=== PATIENT | male | born 1975 | race Two or more races ===

== ENCOUNTER 2020-02-20 11:08 | Observation (INO) | payer MEDICARE, MEDICAID ==
[~2020-02-20] VITALS: Ht 172.7 cm; Wt 57.6 kg
--- NOTE | 2020-02-20 11:08 | NUR ---
TRANSFER FROM [facility] C/O C1-2 DISLOCATION AFTER GLF IN SHOWER, C-COLLAR IN PLACE ON ARRIVAL, PT HEAD IMMOBILIZED WITH BLANKETS/TOWELS TO GURNEY D/T TURNING & LIFTING HEAD FREQUENTLY DESPITE C-COLLAR IN PLACE, NO OTHER INJURY NOTED, PT NON-VERBAL D/T DOWN SYNDROME & DEMENTIA (AT BASELINE), PT FOLLOWS SOME BASIC COMMANDS, NAD, COMFORT MEASURES PROVIDED, SITTER REQUESTED, CALL LIGHT WITHIN REACH. Addendum: 02/20/20 at 1454 by ALYSSA TRANSFER FROM [facility] C/O C1-2 DISLOCATION AFTER GLF IN SHOWER, C-COLLAR IN PLACE ON ARRIVAL, PT HEAD IMMOBILIZED WITH BLANKETS/TOWELS TO GURNEY D/T TURNING & LIFTING HEAD FREQUENTLY DESPITE C-COLLAR IN PLACE, NO OTHER INJURY NOTED, PT ABLE TO FREELY MOVE EXTREMITIES X4, PT NON-VERBAL D/T DOWN SYNDROME & DEMENTIA (AT BASELINE), PT FOLLOWS SOME BASIC COMMANDS, NAD, COMFORT MEASURES PROVIDED, SITTER REQUESTED, CALL LIGHT WITHIN REACH.
--- NOTE | 2020-02-20 11:50 | NUR ---
TASK RN: NEURO EXAM UNCHANGED REMAINS IN C-COLLAR MOVING ALL EXTREMITIES SITTER RE-REQUESTED PATIENT ATTEMPTING TO GET UP AND MOVE (WILL CONTRADICT SPINAL PRECAUTIONS)
--- NOTE | 2020-02-20 12:48 | NUR ---
neuro called back @ [id number]
--- NOTE | 2020-02-20 13:01 | NUR ---
PT LAYING ON GURNEY AWAKE & COMFORTABLE, NO CHANGES IN NEURO ASSESSMENT OR POSITIONING, NAD, COMFORT MEASURES PROVIDED, SITTER AT BS, CALL LIGHT WITHIN REACH.
--- NOTE | 2020-02-20 13:15 | NUR ---
SITTER AT BS
[2020-02-20] MEDS ORDERED: MEMA10TA PO (13:35)
[2020-02-20] MEDS ORDERED: CHOL10003 PO (13:35)
[2020-02-20] MEDS ORDERED: FURO20TA3 PO (13:35)
[2020-02-20] MEDS ORDERED: CYAN100028 PO (13:35)
[2020-02-20] MEDS ORDERED: FEBU40TA PO (13:35)
[2020-02-20] MEDS ORDERED: PRED20TA PO (13:35)
[2020-02-20] MEDS ORDERED: OXCA300T19 PO (13:35)
--- NOTE | 2020-02-20 14:07 | NUR ---
PTCONTINUES LAYING ON GURNEY AWAKE & COMFORTABLE, NO CHANGES IN NEURO ASSESSMENT OR POSITIONING, NAD, COMFORT MEASURES PROVIDED, SITTER AT BS, CALL LIGHT WITHIN REACH.
--- NOTE | 2020-02-20 14:12 | NUR ---
PT TO MRI
--- NOTE | 2020-02-20 14:50 | NUR ---
Pt to be admitted to [facility], room 456. Report called to [facility].
--- NOTE | 2020-02-20 15:33 | NUR ---
RETURNED FROM MRI, TRANSFERRED TO ROOM 456 WITH SITTER.
[2020-02-20] MEDS ORDERED: MORPHINE SULFATE 4 MG/ML, 1ML IVPush PRN (17:30)
[2020-02-20] MEDS ORDERED: D5%-0.45NACL+KCL 20MEQ 1,000 ML IV SCH (17:30)
[2020-02-20] MEDS ORDERED: ONDANSETRON 2MG/ML, 2ML IVPush PRN (17:30)
[2020-02-20] MEDS ORDERED: HYDROCORTISONE 100 MG INJ. ONE ×2 (18:48→20:38)
[2020-02-20 18:53] VITALS: BP 90/52
[2020-02-20] MEDS: HYDROCORTISONE 250 MG/2 ML IVPush SCH (20:00)
[2020-02-21 01:42] VITALS: BP 96/61
[2020-02-21] MEDS ORDERED: HYDROCORTISONE 100 MG INJ. ONE ×2 (03:56→12:35)
[2020-02-21] MEDS: HYDROCORTISONE 250 MG/2 ML IVPush SCH (03:59)
[2020-02-21 05:50] LABS: BASOPHILS % (AUTO) 0 % (0-1); EOSINOPHILS % (AUTO) 0 % (1-7); LYMPHOCYTES % (AUTO) 4 % (22-44); MEAN CORPUSCULAR HEMOGLOBIN 32.8 pg (27.5-34.5); MEAN CORPUSCULAR HGB CONC 34.2 g/dL (33.2-36.2); MONOCYTES % (AUTO) 2 % (2-9); NEUTROPHILS % (AUTO) 94 % (42-75); PLATELET COUNT 241 x10^3/uL (130-400); RED BLOOD COUNT 4.28 x10^6/uL (4.38-5.82); RED CELL DISTRIBUTION WIDTH 13.7 % (9.4-14.8)
[2020-02-21 05:56] LABS: CHLORIDE 103 mmol/L (98-107)
[2020-02-21 06:05] LABS: ALANINE AMINOTRANSFERASE 30 U/L (12-78); ALBUMIN 2.9 g/dL (3.4-5.0); ALKALINE PHOSPHATASE 116 U/L (45-117); ANION GAP 5 mmol/L (5-15); BILIRUBIN,TOTAL 0.5 mg/dL (0.2-1.0); CALCIUM 8.1 mg/dL (8.5-10.1); CREATININE 1.01 mg/dL (0.7-1.3); TOTAL PROTEIN 6.7 g/dL (6.4-8.2)
[2020-02-21 06:50] LABS: MD SCAN
[2020-02-21 07:17] VITALS: BP 94/56
[2020-02-21 09:27] LABS: TROPONIN I < 0.015 ng/mL (0.000-0.045)
[2020-02-21 13:32] VITALS: BP 92/54
[2020-02-21 16:21] VITALS: BP 102/57
== END 2020-02-21 17:19 | disposition home or self-care (01) ==
LOC: ED 12:49 → INTOOBSV 13:06 → EDIP 13:06 → 4NE 15:37 → 5SO 17:34
PROVIDERS: ADMIT Hospitalist; ATTEND Internal Medicine
DX: S13.121A Dislocation of C1/C2 cervical vertebrae, initial encounter (principal); Z20.828 Contact with and (suspected) exposure to other viral communicable diseases; R55 Syncope and collapse; N17.9 Acute kidney failure, unspecified; Q90.9 Down syndrome, unspecified; F03.90 Unspecified dementia, unspecified severity, without behavioral disturbance, psychotic disturbance, mood disturbance, and anxiety; M10.9 Gout, unspecified; M48.02 Spinal stenosis, cervical region; M24.20 Disorder of ligament, unspecified site; Z79.899 Other long term (current) drug therapy; W18.2XXA Fall in (into) shower or empty bathtub, initial encounter; Y92.009 Unspecified place in unspecified non-institutional (private) residence as the place of occurrence of the external cause; Y93.E1 Activity, personal bathing and showering
CPT/HCPCS: 36415; 70450; 70547; 72141; 73552; 80053; 84484; 85025; 87635; 93306; 93880; 96361; 96374; 96376; 99285; G0378; J1720; J3480